=== PATIENT | female | born 1985 | race Caucasian/White ===

== ENCOUNTER 2021-02-03 13:48 | Inpatient (IN) | payer OTHER, SELFPAY ==
[2021-02-03] MEDS ORDERED: Fentanyl 100 MCG/2 ML VIAL ONE ×2 (13:56→14:00)
[2021-02-03] MEDS ORDERED: Dexamethasone 4 mg/ml Vial ONE (14:00)
[2021-02-03] MEDS ORDERED: Midazolam HCl 2 mg/2 ml Vial ONE (14:00)
[2021-02-03] MEDS ORDERED: Ketorolac Tromethamine 30 MG/ML VIAL ONE (14:12)
[2021-02-03] MEDS ORDERED: Rocuronium Bromide 10 MG/ML (10ML VIAL) ONE (14:23)
[2021-02-03] MEDS ORDERED: Ondansetron PF 4 MG/2 ML Vial ONE (14:23)
[2021-02-03] MEDS ORDERED: Glycopyrrolate 0.2 MG/ML 5 ML SYRINGE ONE (14:23)
[2021-02-03] MEDS ORDERED: Dexamethasone 20 MG/5 ML VIAL ONE ×2 (14:23)
[2021-02-03] MEDS ORDERED: PHENYLEPHRINE-NS 100 MCG/ML 10 ML SYRINGE ONE (14:23)
[2021-02-03] MEDS ORDERED: PROPOFOL 200 MG/20 ML VIAL ONE (14:23)
[2021-02-03] MEDS ORDERED: Succinylcholine 200 MG/10 ml SYRINGE FS ONE (14:23)
[2021-02-03] MEDS ORDERED: Bupivacaine HCl 0.5%/Epinephrine 1:200,000/PF 30 ml Vial ONE (14:23)
[2021-02-03] MEDS ORDERED: Lidocaine 1% PF 5 ML VIAL ONE (14:23)
[2021-02-03] MEDS ORDERED: Meperidine HCl/PF 25 MG/ML VIAL ONE (16:04)
[2021-02-03] MEDS ORDERED: Ondansetron HCl/PF 4 MG/2 ML Vial IVP PRN (16:10)
[2021-02-03] MEDS ORDERED: HYDROmorphone 2 MG/ML VIAL SLOW IVP PRN (16:10)
[2021-02-03] MEDS ORDERED: Promethazine HCl 25 MG/ML VIAL IVPB PRN (16:10)
[2021-02-03] MEDS ORDERED: Promethazine HCl 25 MG/ML VIAL IM PRN (16:10)
[2021-02-03] MEDS ORDERED: Meperidine HCl/PF 25 MG/ML VIAL SLOW IVP PRN (16:10)
[2021-02-03] MEDS ORDERED: Calcium Carbonate 500 MG ChewTAB PO PRN (16:37)
[2021-02-03] MEDS ORDERED: Morphine 2 MG/ML VIAL SLOW IVP PRN (16:37)
[2021-02-03] MEDS ORDERED: Ondansetron PF 4 MG/2 ML Vial IVP PRN (16:37)
[2021-02-03] MEDS ORDERED: Mag-Al 1200 mg/1200 mg/30 ML UDCUP PO PRN (16:37)
[2021-02-03] MEDS ORDERED: hydrALAZINE 20 MG/ML VIAL SLOW IVP PRN (16:37)
[2021-02-03] MEDS ORDERED: Ondansetron ODT 8 MG TAB PO PRN (16:39)
[2021-02-03] MEDS ORDERED: Ondansetron ORAL SOLN. 4 MG/5 ML UDCUP PO PRN (16:39)
[2021-02-03] MEDS ORDERED: Acetaminophen 500 MG TAB PO SCH (16:45)
[2021-02-03] MEDS ORDERED: Ketorolac Tromethamine 30 MG/ML VIAL IVP SCH (18:00)
[2021-02-03] MEDS ORDERED: Piperacillin/Tazobactam 3.375 GM in Sodium Chloride 0.9% 100 ML IVPB SCH (18:00)
[2021-02-03] MEDS: D5 1/2 NS w/20 mEq KCL 1,000 ML IV SCH (18:26)
[2021-02-03] MEDS: Ketorolac Tromethamine 30 MG/ML VIAL IVP SCH (20:47)
[2021-02-03] MEDS: Famotidine 20 MG TAB PO SCH (20:49)
[2021-02-03] MEDS ORDERED: Enoxaparin Sodium 40 MG/0.4 ML SYRINGE SC SCH (21:00)
[2021-02-03] MEDS: Morphine 4 MG/ML VIAL SLOW IVP PRN (23:19)
[2021-02-04] MEDS: Ketorolac Tromethamine 30 MG/ML VIAL IVP SCH ×2 (02:24→06:20)
[2021-02-04] MEDS: Piperacillin/Tazobactam 3.375 GM in Sodium Chloride 0.9% 100 ML IVPB SCH ×2 (02:24→11:22)
[2021-02-04 02:40] VITALS: BMI 23.5
[2021-02-04 06:14] LABS: #Lymphocytes 0.5 thou/uL (1.20-3.40); #Monocytes 0.5 thou/uL (0.11-0.59); #Neutrophils 15.7 thou/uL (1.40-6.50); %Eosinophils 0.1 % (0.0-10.0); %Lymphocytes 3.2 % (21.0-51.0); %Monocytes 2.8 % (0.0-10.0); %Neutrophils 93.8 % (42.0-75.0); Hemoglobin 10.5 g/dL (12.0-16.0); Mean Corpuscular HGB CONC 32.9 g/dL (32.0-36.0); Mean Corpuscular Hemoglobin 30.5 pg (27.0-31.0); Mean Corpuscular Volume 92.9 fL (78.0-98.0); Mean Platelet Volume 8.3 fL (7.4-10.4); Platelet Count 237 thou/uL (130-400); Red Blood Cell (RBC) Count 3.43 mill/uL (4.20-5.40); White Blood Cell (WBC) Count 16.7 thou/uL (4.8-10.8)
[2021-02-04 06:39] LABS: ALT (SGPT) 19 U/L (8-55); AST (SGOT) 29 U/L (5-34); Albumin 3.3 g/dL (3.5-5.0); Alkaline Phosphatase 40 U/L (40-110); Anion Gap 10 mmol/L (10-20); BUN (Urea Nitrogen) 9 mg/dL (7.0-18.7); Bilirubin, Total 1.2 mg/dL (0.2-1.2); Calc. Creatinine Clearance 98 mL/min (70-130); Calcium 8.4 mg/dL (7.8-10.44); Carbon Dioxide 22 mmol/L (22-29); Chloride 107 mmol/L (98-107); Globulin 2.6 g/dL (2.4-3.5); Glucose 133 mg/dL (70-105); Protein, Total 5.9 g/dL (6.0-8.3); Sodium 135 mmol/L (136-145)
[2021-02-04] MEDS: D5 1/2 NS w/20 mEq KCL 1,000 ML IV SCH ×2 (08:12→09:34)
[2021-02-04] MEDS: Morphine 4 MG/ML VIAL SLOW IVP PRN (09:34)
[2021-02-04] MEDS: Famotidine 20 MG TAB PO SCH (09:34)
[2021-02-04] MEDS ORDERED: Acetaminophen 500 MG TAB PO PRN (10:09)
[2021-02-04] MEDS ORDERED: Ibuprofen 600 MG TAB PO PRN (10:09)
[2021-02-04] MEDS ORDERED: traMADol HCl 50 MG TAB PO PRN (10:09)
[2021-02-04 12:00] VITALS: BP 115/61; TEMP 97.5
== END 2021-02-04 12:02 | disposition home or self-care (01) | DRG 414 ==
LOC: EDBD 13:48 → SDC/OP 13:48 → SURG B 16:41
PROVIDERS: ADMIT Specialist; ATTEND Specialist
PROC: 0FT40ZZ Resection of Gallbladder, Open Approach (ICD-10-PCS; principal; 2021-02-03)
PROC: 0DJ08ZZ Inspection of Upper Intestinal Tract, Via Natural or Artificial Opening Endoscopic (ICD-10-PCS; 2021-02-03)
DX: K80.10 Calculus of gallbladder with chronic cholecystitis without obstruction (principal); K65.9 Peritonitis, unspecified; Z20.822 Contact with and (suspected) exposure to COVID-19; Z98.890 Other specified postprocedural states
CPT/HCPCS: 36415; 80053; 85025; 88304; C1889; J1100; J1650; J1885; J2175; J2250; J2270; J2405; J2543; J2704; J3010; J3490